=== PATIENT | male | born 2000 | race Caucasian/White ===

== ENCOUNTER 2018-11-26 20:29 | Emergency (ER) | payer BC ==
[~2018-11-26] VITALS: Ht 177.8 cm; Wt 109.1 kg
[2018-11-26 20:37] VITALS: BP 145/69; TEMP 98.1
[2018-11-26] MEDS ORDERED: CEPHALEXIN500 M1 PO (21:18)
[2018-11-26 21:46] VITALS: PULSE 87
== END 2018-11-26 21:32 | disposition home or self-care (01) ==
LOC: COL.ER 20:29
DX: S61.216A Laceration without foreign body of right little finger without damage to nail, initial encounter (principal); W25.XXXA Contact with sharp glass, initial encounter; Y93.F9 Activity, other caregiving; Y92.009 Unspecified place in unspecified non-institutional (private) residence as the place of occurrence of the external cause